=== PATIENT | female | born 1985 | race Two or more races ===

== ENCOUNTER 2024-01-13 19:24 | Inpatient (IN) | payer MEDICAID, OTHER ==
[~2024-01-13] VITALS: Ht 167.6 cm; Wt 127.0 kg
[2024-01-13] MEDS ORDERED: LORazepam 2 MG TABLET PO PRN (23:15)
[2024-01-13] MEDS ORDERED: HALOPERIDOL 5 MG TABLET PO PRN (23:15)
[2024-01-13] MEDS ORDERED: ZOLPIDEM TARTRATE 10 MG TABLET PO PRN (23:15)
[2024-01-13 23:27] LABS: BASOPHILS % (AUTO) 0.8 % (0.0-2.0); EOSINOPHILS % (AUTO) 1.3 % (1.0-6.0); HEMATOCRIT 46.3 % (36-46); HEMOGLOBIN 15.2 g/dL (12.0-16.0); LYMPHOCYTES # (AUTO) 1.7 K/uL (1.0-4.8); LYMPHOCYTES % (AUTO) 17.4 % (22.0-44.0); MEAN CORPUSCULAR HEMOGLOBIN 29.5 pg (26.0-34.0); MEAN CORPUSCULAR HGB CONC 32.8 G/dL (31.0-37.0); MEAN CORPUSCULAR VOLUME 90 fL (80-100); MONOCYTES # (AUTO) 0.5 K/uL (0.1-1.0); MONOCYTES % (AUTO) 5.5 % (2.0-9.0); NEUTROPHILS # (AUTO) 7.4 K/uL (1.8-7.7); PLATELET COUNT (AUTO) 304 K/uL (150-450); RED BLOOD CELL COUNT(AUTO) 5.15 MIL/uL (4.00-5.20); RED CELL DISTRIBUTION WIDTH 15.1 % (11.5-14.5); WHITE BLOOD COUNT (AUTO) 9.9 K/uL (4.5-11.0)
[2024-01-13] MEDS: LORazepam 2 MG TABLET PO ONE (23:31)
[2024-01-13 23:33] LABS: ANION GAP 9 mmol/L (8-16); CALCIUM, TOTAL 9.3 mg/dL (8.8-10.5); CARBON DIOXIDE 26 mmol/L (22-29); CHLORIDE 103 mmol/L (98-107); CREATININE 0.86 mg/dL (0.60-1.30); GLOMERULAR FILTR. RATE CALC > 60 mL/min (>60); GLUCOSE,RANDOM 202 mg/dL (70-110); POTASSIUM 4.3 mmol/L (3.5-5.1); SODIUM SERUM 138 mmol/L (136-145); UREA NITROGEN, BLOOD 13 mg/dL (7-18)
[2024-01-13 23:38] LABS: ALCOHOL, BLOOD (SERUM) < 3 mg/dL (0-10)
[2024-01-13 23:50] LABS: GLUCOMETER DEV NAME(LOC) ERT.5; GLUCOSE,POINT OF CARE 182 MG/DL (70-110)
[2024-01-13 23:53] LABS: COVID AG,FIA SOURCE NASAL SWAB
[2024-01-14 00:09] LABS: SARS-COV2 (COVID) ANTIGEN,FIA Negative (Negative)
[2024-01-14 02:27] VITALS: BP 161/98; PULSE 91; RESP 20; TEMP 98.3; O2SAT 99
[2024-01-14] MEDS ORDERED: BACITRACIN 28 GM OINTMENT TP PRN (05:45)
[2024-01-14] MEDS ORDERED: OMEPRAZOLE 20 MG CAPSULE PO PRN (05:45)
[2024-01-14] MEDS ORDERED: MAG HYDROX/ALUMINUM HYD/SIMETH ES 30 ML SUSPENSION UDCUP PO PRN (05:45)
[2024-01-14] MEDS ORDERED: ALBUTEROL SULFATE HFA 90 MCG/PUFF 8 GM INHALER IH PRN (05:45)
[2024-01-14] MEDS ORDERED: IBUPROFEN 600 MG TABLET PO PRN (05:45)
[2024-01-14] MEDS ORDERED: PETROLATUM,WHITE 28 GM JELLY TP PRN (05:45)
[2024-01-14] MEDS ORDERED: DOCUSATE SODIUM 100 MG CAPSULE PO PRN (05:45)
[2024-01-14] MEDS ORDERED: CloNIDine HCL 0.1 MG TABLET PO PRN (05:45)
[2024-01-14] MEDS ORDERED: BENZOCAINE/MENTHOL LOZENGE PO PRN (05:45)
[2024-01-14] MEDS ORDERED: LOPERAMIDE HCL 2 MG CAPSULE PO PRN (05:45)
[2024-01-14] MEDS ORDERED: GLUCAGON,HUMAN RECOMBINANT 1 MG VIAL IM PRN (05:45)
[2024-01-14] MEDS ORDERED: INSULIN LISPRO 100 UNITS/ML SQ PRN (05:45)
[2024-01-14] MEDS ORDERED: DEXTROSE 50%-WATER 25 GM/50 ML SYRINGE IVP PRN (05:45)
[2024-01-14] MEDS ORDERED: MAGNESIUM HYDROXIDE SUSPENSION 30 ML UDCUP PO PRN (05:45)
[2024-01-14 06:31] LABS: GLUCOMETER DEV NAME(LOC) 3E.I 2; GLUCOSE,POINT OF CARE 167 MG/DL (70-110)
[2024-01-14] MEDS: INSULIN LISPRO 100 UNITS/ML SQ PRN (07:05)
[2024-01-14 08:00] VITALS: BP 139/82; PULSE 84; RESP 18; TEMP 98.6; O2SAT 98
[2024-01-14 11:30] LABS: GLUCOMETER DEV NAME(LOC) 3E.I 2; GLUCOSE,POINT OF CARE 199 MG/DL (70-110)
[2024-01-14 16:26] LABS: GLUCOMETER DEV NAME(LOC) 3E.I 2; GLUCOSE,POINT OF CARE 171 MG/DL (70-110)
[2024-01-14 20:20] LABS: GLUCOMETER DEV NAME(LOC) 3E.I 2; GLUCOSE,POINT OF CARE 162 MG/DL (70-110)
[2024-01-14 22:02] VITALS: BP 144/93; PULSE 70; RESP 18; TEMP 97.6; O2SAT 98
[2024-01-14 22:45] VITALS: BP 154/95; PULSE 72; RESP 18; TEMP 97.4; O2SAT 95
[2024-01-14] MEDS: ACETAMINOPHEN 325 MG TABLET PO PRN (22:49)
[2024-01-14] MEDS: ONDANSETRON HCL 4 MG TABLET PO PRN (22:49)
[2024-01-15 06:30] LABS: GLUCOMETER DEV NAME(LOC) 3E.I 2; GLUCOSE,POINT OF CARE 151 MG/DL (70-110)
[2024-01-15] MEDS: CITALOPRAM HYDROBROMIDE 20 MG TABLET PO SCH (08:58)
[2024-01-15 10:40] VITALS: BP 143/90; PULSE 76; RESP 18; TEMP 98.1; O2SAT 97
[2024-01-15 11:35] LABS: GLUCOMETER DEV NAME(LOC) 3E.I 2; GLUCOSE,POINT OF CARE 183 MG/DL (70-110)
[2024-01-15 16:16] LABS: GLUCOMETER DEV NAME(LOC) 3E.I 2; GLUCOSE,POINT OF CARE 155 MG/DL (70-110)
[2024-01-15 21:06] LABS: GLUCOMETER DEV NAME(LOC) 3E.I 2; GLUCOSE,POINT OF CARE 150 MG/DL (70-110)
[2024-01-15 23:00] VITALS: BP 150/89; PULSE 82; RESP 18; TEMP 98.1; O2SAT 98
[2024-01-16 06:26] LABS: GLUCOMETER DEV NAME(LOC) 3E.I 2; GLUCOSE,POINT OF CARE 167 MG/DL (70-110)
[2024-01-16 09:45] VITALS: BP 145/72; PULSE 83; RESP 18; TEMP 97.6; O2SAT 97
[2024-01-16] MEDS ORDERED: CITA-144 PO (09:56)
== END 2024-01-16 12:41 | disposition home or self-care (01) | DRG 754 ==
LOC: EMS 19:24 → 3EI 01-14 01:59
PROVIDERS: ADMIT Psychiatry & Neurology Psychiatry; ATTEND Psychiatry & Neurology Psychiatry
DX: F32.9 Major depressive disorder, single episode, unspecified (principal); R45.851 Suicidal ideations; F41.9 Anxiety disorder, unspecified; G47.00 Insomnia, unspecified; R73.9 Hyperglycemia, unspecified; Z20.822 Contact with and (suspected) exposure to COVID-19; E66.01 Morbid (severe) obesity due to excess calories; Z68.42 Body mass index [BMI] 45.0-49.9, adult; Z79.899 Other long term (current) drug therapy
CPT/HCPCS: 80048; 82962; 83036; 84703; 85025; 99285; G0480; Q0162